=== PATIENT | female | born 1990 | race Two or more races ===

== ENCOUNTER 2022-08-08 05:40 | Day surgery (SDC) | payer OTHER ==
[~2022-08-08] VITALS: Ht 162.6 cm; Wt 81.6 kg
[~2022-08-08 05:40] MED LIST: INDERAL PO; PANTOPRAZOLE SO40 M2 PO
[2022-08-08] MEDS ORDERED: NEURONTIN300 MG PO (11:28)
[2022-08-08] MEDS ORDERED: DERMOPLAST PAIN78 GM TOP (11:28)
[2022-08-08] MEDS ORDERED: PERCOCET 5-3251 EACH PO (11:28)
== END 2022-08-08 12:25 | disposition home or self-care (01) ==
LOC: CIR.AMB 05:40
PROVIDERS: ATTEND Surgery
DX: K60.1 Chronic anal fissure (principal); K60.3 Anal fistula; I10 Essential (primary) hypertension; Z20.822 Contact with and (suspected) exposure to COVID-19